=== PATIENT | female | born 1985 | race Caucasian/White ===

== ENCOUNTER → 2022-05-14 | Outpatient (CLI) | payer BC, OTHER ==
--- NOTE | 2022-05-15 04:18 | MR ---
EXAMINATION TYPE: MR brain wo/w con DATE OF EXAM: 05/14/2022 COMPARISON: None HISTORY: Migraines CONTRAST: Standard multiplanar, multisequence MRI departmental protocol images were obtained without contrast a nd with 8ml mL intravenous Gadavist gadolinium contrast. Multiplanar multi echo imaging of the brain without and with the IV contrast. The diffusion images show no evidence of an acute infarct. The ventricles have normal size. There is no mass effect or midline shift. No sign of intracranial hemorrhage. The hernandez and white matter struct ures have fairly normal signal pattern. No evidence of cerebral edema. Brainstem appears intact. Corpus callosum appears normal. Sella turcica is normal. There is no evidence of orbital mass. Cerebe llum appears normal. The contrast images show no pathologic enhancement. There is normal enhancement of the [place] is and the venous sinuses. There is normal enhancement of the cavernous sinus. IMPRESSION: Normal MRI scan of the brain.
== END | disposition home or self-care (01) ==
LOC: RADMRIMAIN 18:17
PROVIDERS: ATTEND Family Medicine
DX: G43.909 Migraine, unspecified, not intractable, without status migrainosus (principal)
CPT/HCPCS: 70553